=== PATIENT | female | born 1975 | race Caucasian/White ===

== ENCOUNTER 2016-05-13 07:16 | Emergency (ER) | payer OTHER ==
[~2016-05-13] VITALS: Ht 152.4 cm; Wt 72.6 kg
[~2016-05-13 07:16] MED LIST: AMOX/CLAV POT 81 TAB PO; ATIVAN0.5 MG PO; CRYSELLE-28 TA1 EACH PO; DEXILANT60 MG PO; NAPROXEN500 MG PO; NASONEX0.05 MG/Ac NAS; PREDNISONE 20MG20 MG PO; PROAIR HFA0.09 MG/Ac INH; TESSALON PERLE100 MG PO
--- NOTE | 2016-05-13 08:00 | ED CARDIAC/CP/PALPITATIONS ---
History of Present Illness General Chief Complaint: Chest Pain Stated Complaint: CP WITH SOB 100 RA Source: patient Exam Limitations: no limitations Vital Signs & Intake/Output Vital Signs & Intake/Output Vital Signs Date Time Temp Pulse Resp B/P Pulse O2 O2 Flow FiO2 Ox Delivery Rate 05/13 1059 72 20 138/68 98 Room Air 05/13 0759 97.5 80 20 150/70 99 Room Air 05/13 0721 97.2 77 16 145/91 100 Room Air Allergies Coded Allergies: shellfish derived (Intermediate, HIVES 05/13/16) Sulfa (Sulfonamide Antibiotics) (RASH 05/13/16) latex (IRRITATION ON CONTACT SITE 05/13/16) doxycycline (Mild, NAUSEA 05/13/16) Uncoded Allergies: SEAFOOD (Mild, HIVES 05/13/16) Reconcile Medications Citalopram Hydrobromide (Citalopram HBr) 20 MG TABLET 1 TAB PO QPM MENTAL HEALTH (Reported) Norgestrel-Ethinyl Estradiol (Cryselle-28 Tablet) 0.3 MG-30 MCG TABLET 1 TAB PO QPM BC (Reported) Triage Note: PT STATES SHE HAS BEEN HAVING CHEST PAIN DIARRHEA AND SOB ON AND OFF FOR THE LAST WEEK. PT STATES IT HURTS WHEN SHE TAKES A DEEP BREATH IN. PT STATES SHE DOES HAVE ANXIETY BUT SHE HAS NEVER HAD CHEST PAIN WITH THE ATTACKS. Triage Nurses Notes Reviewed? yes : No Patient currently breastfeeds: No HPI: This patient is a 40-year-old female with past medical history including anxiety and acid reflux who presented to the emergency department today for evaluation of intermittent chest pain 1 week. The patient reported that approximately one week ago she started getting chest, "pressure and pinching." She reported that she gets this sensation approximately 10 times a day. It is usually elicited by certain movements when she is reaching for something or when she takes a deep breath. She reported that last a few seconds and goes away. She reported the pain gets up to a 4 out of 10 and is nonradiating. It is located in the left side of her chest. She also reported a similar pain in the left side of her upper back. She reported that the pains are completely separate from one another. She did report that she has a history of, "a sore spot in that part of my back." The patient reported that she feels like her breathing has been, "troubles," over the last week. She reported that she feels more short of breath when walking up and down stairs than usual. She also reported diarrhea 2 with no blood in the stool. She reported nausea last night, but not currently. No abdominal pain or vomiting. The patient denied any current chest pain. No current shortness of breath, visual changes, dental pain, jaw pain, arm pain. She did report some intermittent tingling in her left hand. No numbness in her extremities. She denied any urinary symptoms. 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 see below for history EENT: sinusitis Respiratory: asthma Gastrointestinal: GERD Surgical History Surgical History: non-contributory Psychosocial History What is your primary language Ukrainian Tobacco Use: Quit >30 days ago ETOH Use: occasional use Illicit Drug Use: denies illicit drug use Family History Family History, If Any: Relation not specified for: FH: hypertension Hx Contributory? Yes (TEETEE VERA PA-C) Review of Systems Review of Systems Constitutional: Reports: no symptoms. EENTM: Reports: no symptoms. Respiratory: Reports: see HPI. Cardiovascular: Reports: see HPI. GI: Reports: see HPI. Genitourinary: Reports: no symptoms. Musculoskeletal: Reports: see HPI. Skin: Reports: no symptoms. Neurological/Psychological: Reports: no symptoms. Hematologic/Endocrine: Reports: no symptoms. All Other Systems: Reviewed and Negative (TEETEE VERA PA-C) Physical Exam Physical Exam Cardiovascular: regular rate/rhythm, normal peripheral pulses, no murmurs, rubs, or gallops. No JVD. No carotid bruits appreciated Comments: Well-developed well-nourished person in no acute distress HEENT: Normal EENT exam, head normocephalic, moist mucous membranes PERRLA bilaterally Neck: Supple, no lymphadenopathy Back: Normal gait. Normal inspection Respiratory: Chest nontender. No respiratory distress. Speaking in full sentences. Lungs clear to auscultation bilaterally with no wheezes, rales, or rhonchi Abdomen: Soft, nontender and nondistended. No organomegaly. Normoactive bowel sounds. No rebound or guarding. No peritoneal signs Extremity: No edema, no calf tenderness to palpation, normal and equal pulses. Neuro: Alert oriented x3, cranial nerves II through XII grossly intact. Skin: No appreciable rash on exposed skin, skin is warm and dry. Psych: Mood and affect is normal Core Measures ACS in differential dx? Yes Severe Sepsis Present: No Septic Shock Present: No (JODY PAUL,TEETEE) Progress Differential Diagnosis: AMI, aortic dissection, atrial fibrillation, cholecystitis, costochondritis, hyperkalemia, hyperthyroid, hyperventilation, musculoskeletal pain, myocarditis, pancreatitis, pericarditis, pneumonia, pneumothorax, PSVT, pulmonary embolism, PUD/GERD, PVCs/PACs, sepsis, unstable angina, valvular regurgitation, valvular stenosis, generalized anxiety disorder, gastroenteritis Plan of Care: Orders Procedure Date/time Status Add-on Test (ER Only) 05/13 0830 Active THYROID STIMULATING HORMONE 05/13 0823 Complete FREE T4 05/13 0823 Complete TROPONIN LEVEL 05/13 0758 Complete MAGNESIUM 05/13 0758 Complete LIPASE 05/13 0758 Complete HUMAN BETA HCG SCREEN 05/13 0758 Complete D-DIMER 05/13 0758 Complete DIRECT BILIRUBIN 05/13 0758 Complete COMPREHENSIVE METABOLIC PANEL 05/13 0758 Complete CBC WITHOUT DIFFERENTIAL 05/13 0758 Complete AMYLASE 05/13 0758 Complete EKG 05/13 0722 Active Laboratory Tests 05/13/16 0823: Anion Gap 11, Estimated GFR > 60, BUN/Creatinine Ratio 15.0, Glucose 90, Calcium 9.8, Magnesium 1.9, Total Bilirubin 0.6, Direct Bilirubin 0.4, AST 33, ALT 63 H , Alkaline Phosphatase 48, Troponin I < 0.01, Total Protein 7.4, Albumin 4.5, Globulin 2.9, Albumin/Globulin Ratio 1.6, Amylase 60, Lipase 90, TSH 2.430, Free T4 0.86, Total Beta HCG NEGATIVE, D-Dimer 269 H, CBC w Diff NO MAN DIFF REQ, RBC 4.84, MCV 88.2, MCH 30.1, RDW 12.7, MPV 8.8, Gran % 66.0, Lymphocytes % 27.0 , Monocytes % 6.2, Eosinophils % 0.4, Basophils % 0.4, Absolute Granulocytes 3.7 , Absolute Lymphocytes 1.5, Absolute Monocytes 0.3, Absolute Eosinophils 0, Absolute Basophils 0, PUBS MCHC 34.2 Diagnostic Imaging: Viewed by Me: CT Scan. Discussed w/RAD: CT Scan. Radiology Impression: PATIENT: MARLENE GONSALES PRESENT AGE: 40 PATIENT ACCOUNT NO: [id number] : 77 LOCATION: [facility] ORDERING PHYSICIAN: TEETEE VERA PA-C SERVICE DATE: 05/13/16 EXAM TYPE: CAT - CTA CHEST-PULMONARY EMBOLISM EXAMINATION: CT ANGIOGRAM OF THE CHEST WITH AND WITHOUT CONTRAST (CT PULMONARY ANGIOGRAM FOR PE) CLINICAL INFORMATION: Chest pain. Evaluate for acute pulmonary embolism. COMPARISON: CT chest dated TECHNIQUE: Prior to contrast administration, noncontrast localization images were obtained. Subsequently, multidetector volumetric imaging was performed from the thoracic inlet to below the diaphragms following the administration of 62 mL Optiray 350 intravenous contrast. No contrast reaction reported Sagittal, coronal, and MIP oblique sagittal reformatted images were obtained on the CT workstation, uploaded to PACS, and reviewed. Total exam dose- length product 455.33 mGy-cm FINDINGS: QUALITY OF STUDY/CONTRAST BOLUS: Satisfactory. PULMONARY ARTERIES: No central or segmental pulmonary emboli. THORACIC AORTA: No aneurysm or dissection. LUNG: Stable 0.3 cm plaque-like pleural-based nodule along the left interlobar fissure may represent small fissure lobe (series 4 image 185). Stable 0.3 cm left lower lobe nodule (series 4 image 273) minor dependent atelectatic changes bilateral bases. Tracheobronchial tree is within normal limits. PLEURA: Minor pleural thickening bilateral bases. MEDIASTINUM: Slight interval prominence of the left ventricular chamber size may be partly attributed to diastole . No evidence of septal bowing or right heart strain. No evidence of mediastinal or hilar lymphadenopathy. CHEST WALL/AXILLA: Stable small axillary lymph nodes. OSSEOUS STRUCTURES: No acute or suspicious osseous abnormality. UPPER ABDOMEN: Multiple low-attenuation hepatic foci scattered throughout the hepatic parenchyma noted again. Compared to the previous examination, there has been slight interval increase in the number of these foci. These lesions also demonstrate slight interval increase. Larger lesions are compatible with hepatic cysts. Smaller lesions are too small to be accurately characterized. Largest lesion measures approximately 2.3 cm in the left hepatic lobe. Bilateral upper pole renal cysts. Kidneys are not included in examination. No reflux of contrast into the hepatic veins to suggest elevated right heart pressures. IMPRESSION: 1. There is no CTA evidence of acute pulmonary embolism. 2. Stable 0.3 cm nodules left lower lobe. 3. Multiple hepatic cysts noted in the visualized portions of the hepatic parenchyma. Some of the cysts demonstrates slight interval increase in size. There is also slight increase in the number of cysts. VTE: negative DICTATED BY: GIRMA MAR MD DATE/TIME DICTATED:05/13/161026 FLEET MANAGER:DARREN DATE/TIME TRANSCRIBED:05/13/161026 CONFIDENTIAL, DO NOT COPY WITHOUT APPROPRIATE AUTHORIZATION. <Electronically signed in Other Vendor System> SIGNED BY: GIRMA MAR MD 05/13/16 1047 Initial ED EKG: normal axis, normal intervals, normal sinus rhythm, no ST T wave changes, 83 BPM (TEETEE VERA PA-C) Departure Departure Disposition: HOME OR SELF CARE Condition: Stable Clinical Impression Primary Impression: Musculoskeletal pain Referrals: ZAK MCKINNON,BHAVANA Venegas (PCP/Family) Lisa MARTINEZ MD Additional Instructions: You may take [id number] Motrin for pain and inflammation. Please rest and avoid any strenuous activity or heavy lifting. Gentle stretching. You may call the newspaper delivery driver whose information has been provided to this packet for further evaluation and management. Return for any worsening symptoms or concerns. Departure Forms: Customer Survey General Discharge Information (TEETEE VERA PA-C) PA/BRICK MASON Co-Sign Statement Statement: ED Attending supervision documentation- [] I saw and evaluated the patient. I have also reviewed all the pertinent lab results and diagnostic results. I agree with the findings and the plan of care as documented in the PA's/BRICK MASON's documentation. x I have reviewed the ED Record and agree with the PA's/BRICK MASON's documentation. [] Additions or exceptions (if any) to the PAs/BRICK MASON's note and plan are summarized below: [] (AURORA GUTIERREZ,KAITLIN) Critical Care Note Critical Care Note Critical Care Time: non-applicable (TEETEE VERA PA-C)
[2016-05-13] MEDS ORDERED: CITALOPRAM HBR20 MG PO (08:07)
[2016-05-13 08:30] LABS: ABSOLUTE BASOPHIL COUNT 0 /CUMM (0.0-0.2); ABSOLUTE EOSINOPHIL COUNT 0 /CUMM (0.0-0.7); ABSOLUTE GRANULOCYTE CT 3.7 /CUMM (1.4-6.5); ABSOLUTE LYMPH COUNT 1.5 /CUMM (1.2-3.4); ABSOLUTE MONOCYTE COUNT 0.3 /CUMM (0.10-0.60); BASOPHIL % 0.4 % (0.0-2.0); EOSINOPHIL % 0.4 % (0-5); HEMATOCRIT 42.7 % (37-47); MEAN CORPUSCULAR HGB 30.1 PG (27.0-31.0); MEAN CORPUSCULAR HGB CONC 34.2 G/DL (33.0-37.0); MEAN CORPUSCULAR VOLUME 88.2 FL (81.0-99.0); MEAN PLATELET VOLUME 8.8 FL (7.4-10.4); PLATELET COUNT 206 /CUMM (130-400); RBC DISTRIBUTION WIDTH 12.7 % (11.5-14.5); RED BLOOD CELL CT 4.84 /CUMM (4.20-5.40); WHITE BLOOD CELL COUNT 5.6 /CUMM (4.8-10.8)
--- NOTE | 2016-05-13 10:47 | CT SCAN REPORT ---
EXAMINATION: CT ANGIOGRAM OF THE CHEST WITH AND WITHOUT CONTRAST (CT PULMONARY ANGIOGRAM FOR PE) CLINICAL INFORMATION: Chest pain. Evaluate for acute pulmonary embolism. COMPARISON: CT chest dated 04/04/2014 TECHNIQUE: Prior to contrast administration, noncontrast localization images were obtained. Subsequently, multidetector volumetric imaging was performed from the thoracic inlet to below the diaphragms following the administration of 62 mL Optiray 350 intravenous contrast. No contrast reaction reported Sagittal, coronal, and MIP oblique sagittal reformatted images were obtained on the CT workstation, uploaded to PACS, and reviewed. Total exam dose-length product 455.33 mGy-cm FINDINGS: QUALITY OF STUDY/CONTRAST BOLUS: Satisfactory. PULMONARY ARTERIES: No central or segmental pulmonary emboli. THORACIC AORTA: No aneurysm or dissection. LUNG: Stable 0.3 cm plaque-like pleural-based nodule along the left interlobar fissure may represent small fissure lobe (series 4 image 185). Stable 0.3 cm left lower lobe nodule (series 4 image 273) minor dependent atelectatic changes bilateral bases. Tracheobronchial tree is within normal limits. PLEURA: Minor pleural thickening bilateral bases. MEDIASTINUM: Slight interval prominence of the left ventricular chamber size may be partly attributed to diastole . No evidence of septal bowing or right heart strain. No evidence of mediastinal or hilar lymphadenopathy. CHEST WALL/AXILLA: Stable small axillary lymph nodes. OSSEOUS STRUCTURES: No acute or suspicious osseous abnormality. UPPER ABDOMEN: Multiple low-attenuation hepatic foci scattered throughout the hepatic parenchyma noted again. Compared to the previous examination, there has been slight interval increase in the number of these foci. These lesions also demonstrate slight interval increase. Larger lesions are compatible with hepatic cysts. Smaller lesions are too small to be accurately characterized. Largest lesion measures approximately 2.3 cm in the left hepatic lobe. Bilateral upper pole renal cysts. Kidneys are not included in examination. No reflux of contrast into the hepatic veins to suggest elevated right heart pressures. IMPRESSION: 1. There is no CTA evidence of acute pulmonary embolism. 2. Stable 0.3 cm nodules left lower lobe. 3. Multiple hepatic cysts noted in the visualized portions of the hepatic parenchyma. Some of the cysts demonstrates slight interval increase in size. There is also slight increase in the number of cysts. VTE: negative
[2016-05-13 10:59] VITALS: BP 138/68
== END 2016-05-13 11:00 ==
LOC: ERH 07:16
PROVIDERS: Physician Assistant
DX: R07.89 Other chest pain (principal)
CPT/HCPCS: 93005; 93010; 96374; J2930; Q9965